=== PATIENT | female | born 1995 | race Two or more races ===

== ENCOUNTER 2022-01-08 11:44 | Emergency (ER) | payer OTHER ==
[~2022-01-08] VITALS: Ht 152.4 cm; Wt 52.6 kg
[~2022-01-08 11:44] MED LIST: CEFUROXIME250 MG PO; OSEL75CA PO; PANADOL EXTRA500 MG; PEPCID40 MG PO; ZOFRAN8 MG PO
== END 2022-01-08 16:53 | disposition home or self-care (01) ==
LOC: ER 11:44
DX: K52.9 Noninfective gastroenteritis and colitis, unspecified (principal)

== ENCOUNTER 2023-02-21 10:42 | Emergency (ER) | payer OTHER ==
[~2023-02-21] VITALS: Ht 152.4 cm; Wt 51.7 kg
[2023-02-21 14:09] LABS: HEMATOCRIT 34.2 % (36.0-45.00); HEMOGLOBIN 11.5 g/dL (12.0-15.00); MEAN CELL VOLUME 88.9 fL (80.00-100.00); MEAN CORPUSCULAR HEMOGLOBIN 29.8 pg (27.00-32.0); MEAN CORPUSCULAR HGB CONC 33.6 g/dl (32.0-36.0); PLATELET COUNT 244 K/uL (150-450); RED BLOOD COUNT 3.84 M/uL (4.00-6.00); RED CELL DISTRIBUTION WIDTH 13.8 % (11.5-14.5)
[2023-02-21 14:55] LABS: ALBUMIN 3.7 gm/dL (3.4-5.0); BILIRUBIN TOTAL 0.3 mg/dL (0.3-1.2); CREATININE SERUM 0.99 mg/dL (0.55-1.02); GFR 66.31; GLOBULINA 4.1 G/DL (2.4-3.5); TOTAL PROTEIN 7.8 gm/dL (6.4-8.2)
[2023-02-21 15:05] LABS: POTASSIUM 2.86 mEq/L (3.5-5.1)
== END 2023-02-21 16:50 | disposition home or self-care (01) ==
LOC: ER 10:43
PROVIDERS: General Practice
DX: B34.9 Viral infection, unspecified (principal); Z20.822 Contact with and (suspected) exposure to COVID-19

== ENCOUNTER 2023-03-15 18:08 | Inpatient (IN) | payer OTHER ==
[~2023-03-15] VITALS: Ht 152.4 cm; Wt 47.6 kg
[2023-03-15 20:58] LABS: HEMATOCRIT 32.9 % (36.0-45.00); HEMOGLOBIN 11.1 g/dL (12.0-15.00); MEAN CELL VOLUME 91.2 fL (80.00-100.00); MEAN CORPUSCULAR HEMOGLOBIN 30.7 pg (27.00-32.0); MEAN CORPUSCULAR HGB CONC 33.7 g/dl (32.0-36.0); PLATELET COUNT 306 K/uL (150-450); RED BLOOD COUNT 3.61 M/uL (4.00-6.00)
[2023-03-15 21:09] LABS: PH,URINE 5.5 (5.0-8.0); URINE APPEARANCE Clear; URINE BILIRRUBIN Negative (NEGATIVE); URINE BLOOD Negative; URINE COLOR Yellow; URINE GLUCOSE Negative (NEGATIVE); URINE LEUKOCYTE Trace; URINE NITRATE Negative; URINE PROTEIN Negative (NEGATIVE); URINE UROBILINOGEN 0.2 E.U./dl
[2023-03-15 21:10] LABS: URINE EPITHELIAL CELLS 29.6 uL (0.0-38.8); URINE RBC 4.3 uL (0.0-20.8); URINE WBC 54.8 uL (0.0-23.2)
[2023-03-15 21:23] LABS: CALCIUM 8.9 mg/dL (8.5-10.1); CREATININE SERUM 0.81 mg/dL (0.55-1.02); GFR 83.59; POTASSIUM 3.42 mEq/L (3.5-5.1)
[2023-03-16 06:45] LABS: INR 1.18; PARTIAL THROMBOPLASTIN TIME 26.1 SECONDS (22.0-34.0); PROTHROMBIN TIME 12.2 SECONDS (9.0-11.5)
== END 2023-03-17 19:37 | disposition home or self-care (01) | DRG 690 ==
LOC: ER 18:09 → SEC-K 22:46 → MEDI 03-16 12:59
PROVIDERS: General Practice; Nurse Practitioner Family; ADMIT Specialist; ATTEND Specialist
DX: N39.0 Urinary tract infection, site not specified (principal); B96.1 Klebsiella pneumoniae [K. pneumoniae] as the cause of diseases classified elsewhere; Z20.822 Contact with and (suspected) exposure to COVID-19